=== PATIENT | male | born 1995 | race Caucasian/White ===

== ENCOUNTER 2017-02-27 03:03 | Emergency (ER) | payer BC, OTHER ==
[~2017-02-27] VITALS: Ht 190.5 cm; Wt 100.0 kg
[2017-02-27 03:27] VITALS: BP 151/65; PULSE 90; RESP 18; TEMP 98.6; O2SAT 100
--- NOTE | 2017-02-27 03:54 | PD ---
HPI Chief Complaint: Alcohol/Drug Intoxication Time Seen by Provider: 03:54 Travel History International Travel<30 days: No Contact w/Intl Traveler<30days: No Traveled to known affect area: No History of Present Illness HPI 21-year-old male with no significant medical history presents to the emergency department under Hummel act. Patient is clinically intoxicated. He states that he has had a large amount to drink this evening. He states he is staying at the [facility] and but he has no safe mode of transportation to get back there. Denies any suicidal or homicidal ideations. Patient has no other symptoms to report. States that he is vacationing from [place]. [facility] Past Medical History Medical History: Denies Significant Hx Social History Alcohol Use: Yes Tobacco Use: No Substance Use: No Allergies-Medications (Allergen,Severity, Reaction): Coded Allergies: No Known Allergies (Unverified , 02/27/17) Review of Systems ROS Limitations: Intoxication Except as stated in HPI: all other systems reviewed are Neg Physical Exam Exam Limitations: Intoxication Narrative GENERAL: Well-nourished male patient, ambulatory with a nonantalgic gait no acute distress. Strong smell of beer on the patient's breath. SKIN: Focused skin assessment warm/dry. HEAD: Atraumatic. Normocephalic. EYES: Pupils equal and round. No scleral icterus. No injection or drainage. ENT: No nasal bleeding or discharge. Mucous membranes pink and moist. NECK: Trachea midline. No JVD. CARDIOVASCULAR: Regular rate and rhythm. No murmur appreciated. RESPIRATORY: No accessory muscle use. Clear to auscultation. Breath sounds equal bilaterally. GASTROINTESTINAL: Abdomen soft, non-tender, nondistended. Hepatic and splenic margins not palpable. MUSCULOSKELETAL: No obvious deformities. No clubbing. No cyanosis. No edema. NEUROLOGICAL: Awake and alert. No obvious cranial nerve deficits. Motor grossly within normal limits. Normal speech. Data Data Last Documented VS Vital Signs Date Time Temp Pulse Resp B/P Pulse Ox O2 Delivery O2 Flow Rate FiO2 02/27/17 03:27 98.6 90 18 151/65 100 MDM Medical Decision Making Medical Screen Exam Complete: Yes Emergency Medical Condition: Yes Medical Record Reviewed: Yes Differential Diagnosis Alcohol intoxication for substance abuse versus mood disorder versus personality disorder Narrative Course 21-year-old male presents to the emergency department under a Hummel act. Patient appears without distress. He is clinically intoxicated with a strong smell of alcohol on his breath. Patient will be observed until he is clinically sober and has a safe mode of transportation home. At which time he' ll be discharged. Patient agrees to return immediately with any acute worsening of symptoms. Diagnosis Primary Impression: Alcohol intoxication Qualified Code: F10.920 - Alcohol intoxication, uncomplicated Referrals: [facility] (Out patient) Patient Instructions: Alcohol Intoxication (ED), General Instructions Additional Instructions: Consume alcohol in moderation Follow-up with a primary care provider Return immediately with any acute worsening of symptoms Med/Other Pt SpecificInfo: No Change to Meds Disposition: 01 DISCHARGE HOME Condition: Stable Diane Dotson February 27, 2017 03:54
== END 2017-02-27 06:45 | disposition home or self-care (01) ==
LOC: NEPD 03:03
DX: F10.920 Alcohol use, unspecified with intoxication, uncomplicated (principal)
CPT/HCPCS: 99284